=== PATIENT | male | born 1955 | race Caucasian/White ===

== ENCOUNTER 2017-11-28 19:33 | Emergency (ER) | payer OTHER ==
[2017-11-28] MEDS: SOD CHLORIDE 0.9% 1,000 ML IV (20:21)
[2017-11-28 20:23] LABS: WHITE BLOOD COUNT 7.3 10^3/ul (4.8-10.8)
[2017-11-28 20:23] LABS: ABNORMAL IP MESSAGE 1; HEMATOCRIT 22.5 % (42.0-52.0); MEAN CORPUSCULAR HEMOGLOBIN 15.8 pg (29.0-33.0); MEAN CORPUSCULAR HGB CONC 25.8 g/dl (32.0-37.0); MEAN CORPUSCULAR VOLUME 61.1 fl (82.0-101.0); PLATELET COUNT 166 10^3/UL (140-415); POSITIVE DIFF @See below; RED BLOOD COUNT 3.68 10^6/ul (4.70-6.10); RED CELL DISTRIBUTION WIDTH 22.1 % (11.5-14.5)
[2017-11-28 20:38] LABS: PROTIME 15.4 Sec (11.9-14.9); PT RATIO 1.2
[2017-11-28 20:53] LABS: ANION GAP 16 (8-16); BLOOD UREA NITROGEN 17 mg/dl (7-20); CALCIUM 8.4 mg/dl (8.4-10.2); CARBON DIOXIDE 19 mmol/L (21-31); CHLORIDE 100 mmol/L (97-110); CREATININE 1.22 mg/dl (0.61-1.24); GLUCOSE 117 mg/dl (70-220); POTASSIUM 4.1 mmol/L (3.5-5.1); SODIUM 131 mmol/L (135-144)
[2017-11-28 20:55] LABS: HEMOGLOBIN 5.8 g/dl (14.0-18.0)
[2017-11-28 20:56] LABS: ADD MAN DIFF? YES; PATH REVIEW? YES
[2017-11-28 21:03] LABS: TROPONIN-I < 0.012 ng/ml (0.000-0.120)
[2017-11-28 23:16] LABS: IMMEDIATE SPIN CROSSMATCH 1 2
[2017-11-28] MEDS: SOD CHLORIDE 0.9% 250 ML IV (23:30)
== END 2017-11-29 01:00 | disposition short-term general hospital (02) ==
LOC: E/R 11-29 01:00
PROVIDERS: Pediatrics
DX: D64.9 Anemia, unspecified (principal); E86.0 Dehydration; R55 Syncope and collapse
CPT/HCPCS: 36415; 36430; 71045; 80048; 82962; 84484; 85025; 85610; 85730; 86850; 86900; 86901; 86920; 93005; 96360; 99285-25